=== PATIENT | male | born 1950 | race Caucasian/White ===

== ENCOUNTER 2016-05-07 16:23 | Emergency (ER) | payer MEDICARE, OTHER ==
[2016-05-07 19:48] LABS: HEMOGLOBIN 12.4 gm/dl (14.0-17.5); RED BLOOD COUNT 4.06 M/UL (4.20-5.50); WHITE BLOOD COUNT 5.9 K/UL (4.5-11.0)
[2016-05-07 20:03] LABS: BUN/CREATININE RATIO 20 (0-10)
== END 2016-05-07 21:35 | disposition home or self-care (01) ==
LOC: ER1 16:23
PROVIDERS: Family Medicine
DX: M17.12 Unilateral primary osteoarthritis, left knee (principal); F17.200 Nicotine dependence, unspecified, uncomplicated
CPT/HCPCS: 36415; 73564; 80053; 84550; 85025; 96372; 99283; J1885

== ENCOUNTER 2020-07-23 18:03 | Observation (INO) | payer MEDICARE, OTHER ==
[~2020-07-23] VITALS: Ht 182.9 cm; Wt 100.0 kg
[2020-07-23 18:23] LABS: HEMOGLOBIN 11.6 gm/dl (14.0-17.5); RED BLOOD COUNT 3.6 M/UL (4.20-5.50); WHITE BLOOD COUNT 8.5 K/UL (4.5-11.0)
[2020-07-23 18:45] LABS: BUN/CREATININE RATIO 20 (0-10)
[2020-07-24] MEDS ORDERED: ALDACTONE 25MG25 MG PO (11:06)
[2020-07-24] MEDS ORDERED: GABAPENTIN800 MG PO (11:06)
[2020-07-24] MEDS ORDERED: FUROSEMIDE40 MG PO (11:06)
[2020-07-24] MEDS ORDERED: OXYCODONE-ACET1 EACH PO (11:06)
[2020-07-24] MEDS ORDERED: ISOSORBIDE MONO30 MG PO (11:07)
[2020-07-24] MEDS ORDERED: LISINOPRIL10 MG PO (11:07)
[2020-07-24] MEDS ORDERED: FLONASE 0.05% N16 GM (11:08)
[2020-07-24] MEDS ORDERED: PROAIR HFA8.5 GM INH (11:08)
[2020-07-24] MEDS ORDERED: METOPROLOL SUCC25 MG PO (11:08)
[2020-07-24] MEDS ORDERED: ALPRAZOLAM0.5 MG PO (11:09)
[2020-07-24] MEDS ORDERED: NITROGLYCERIN0.4 MG SL (11:09)
[2020-07-24] MEDS ORDERED: ADULT LOW DOSE81 MG PO (11:11)
[2020-07-26] MEDS ORDERED: PERCOCET 5/325 T1 EA PO (07:49)
== END 2020-07-26 12:25 | disposition home or self-care (01) ==
LOC: ER1 18:03 → EDBD 18:03 → MED SURG 4 19:29 → CDU 19:29 → MED SURG 4 07-24 02:48
PROVIDERS: Emergency Medicine; ADMIT Surgery
DX: S01.01XA Laceration without foreign body of scalp, initial encounter (principal); S06.9X9A Unspecified intracranial injury with loss of consciousness of unspecified duration, initial encounter; V48.5XXA Car driver injured in noncollision transport accident in traffic accident, initial encounter; R41.82 Altered mental status, unspecified; I45.10 Unspecified right bundle-branch block; F17.200 Nicotine dependence, unspecified, uncomplicated; I95.9 Hypotension, unspecified; Z20.822 Contact with and (suspected) exposure to COVID-19; Z95.0 Presence of cardiac pacemaker; R40.2423 Glasgow coma scale score 9-12, at hospital admission
CPT/HCPCS: 70450; 71045; 71260; 72125; 72170; 80053; 80307; 81001; 83605; 85025; 85610; 85730; 86850; 86900; 86901; 93005; 94640; 94664; 94760; 96374; 96375; 96376; 99284; G0378; G0480; J2270; J3010; J7030; Q9967; U0002